=== PATIENT | male | born 1945 | race Caucasian/White ===

== ENCOUNTER 2018-06-27 17:01 | Inpatient (IN) ==
[2018-06-27] MEDS ORDERED: CALCIUM CHLORIDE 1,000 MG/10 ML SYRINGE IV ONE (17:41)
[2018-06-27] MEDS ORDERED: DEXTROSE 50% 50 ML VIAL IV ONE ×2 (17:41→23:25)
[2018-06-27] MEDS ORDERED: INSULIN REGULAR, HUMAN 1 UNIT/0.01 ML UNIT IV ONE (17:41)
[2018-06-27] MEDS ORDERED: 0.9 % SODIUM CHLORIDE 1,000 ML IV ONE ×2 (18:04→19:33)
--- NOTE | 2018-06-27 19:03 | Emergency Department Note ---
Recheck HPI - General Chief Complaint: Recheck/Abnormal Lab/Rx Stated Complaint: High potassium Time Seen by Provider: 06/27/18 17:40 Source: patient, family Mode of arrival: EMS Limitations: no limitations - History of Present Illness HPI Narrative: Patient was asked to come the emergency room by the [place] where he had blood drawn this morning and was found to have a reported potassium of 7.6. He denies dizziness, palpitations, lightheadedness, chest pain, shortness of breath. He has some chronic problems with his right knee and right lower extremity from old injuries and from a knee replacement of August 2017 which had complications. He admits to not drinking very well at all sometimes only 8 ounces a day. He is on chlorthalidone and lisinopril. He is on multiple other medications. REVIEW OF SYSTEMS: See above. Denies nausea or vomiting or diarrhea. Denies shortness of breath or cough. Denies chest pain. Denies fevers chills and sweats. Denies dysuria although he has had irritable bladder in the past. No headache. He does have frequent muscle cramps which is new or recent. - Related Data Home Medications Medication Instructions Recorded Confirmed Losartan 25 mg PO BID 11/29/14 11/29/14 metFORMIN [Glucophage] 250 mg PO BIDCC 11/29/14 11/29/14 Previous Rx's Medication Instructions Recorded Ciprofloxacin 0.3% Ophth Drops 2 gtt OU TID #1 bottle 08/25/17 [Ciloxan 0.3% Ophth Drops] Cyclobenzaprine [Flexeril] 10 mg PO TID #20 tab 12/14/17 Clindamycin HCl [Cleocin] 300 mg PO TID #30 cap 12/15/17 Allergies Allergy/AdvReac Type Severity Reaction Status Date / Time furosemide [From Lasix] Allergy Mild Hives Verified 06/27/18 17:01 Poison [place] Extract Allergy Mild Hives Verified 06/27/18 17:01 Past Medical History - Past Medical History [facility] Narrative: Medical History (Last Updated 06/27/18 @ 19:02 by Jamie Wild DO) Status post myocardial infarction (Chronic) Diabetes mellitus type 2 in obese (Chronic) Obesity (BMI 30-39.9) (Chronic) Hypertension, essential (Chronic) Chronic pain syndrome (Chronic) RJ (obstructive sleep apnea) (Chronic) Hyperlipidemia (Chronic) Iron deficiency anemia (Chronic) Chronic low back pain (Chronic) Erectile dysfunction (Chronic) Tinnitus, bilateral (Chronic) Sensorineural hearing loss (SNHL) of both ears (Chronic) Overactive bladder (Chronic) BPH (benign prostatic hyperplasia) (Chronic) Exposure to Agent [place] (Chronic) Depression, major, recurrent (Chronic) PTSD (post-traumatic stress disorder) (Chronic) History of cellulitis (Chronic) Cellulitis (Resolved) Cellulitis of right lower leg (Resolved) Past Surgical History (Last Updated 06/27/18 @ 19:02 by Jamie Wild DO) S/P coronary artery stent placement (Chronic) S/P meniscectomy (Resolved) S/P orchiectomy (Resolved) Medical history: Reports: arthritis, coronary artery disease, DM, hyperlipidemia, hypertension, myocardial infarction Surgical history ED: Reports: angioplasty/stent, knee replacement - Social History smoking status: Never smoker Alcohol use: Reports: None Drug use: Reports: none Physical Exam Limitations: no limitations General appearance: alert, in no apparent distress Head: atraumatic, normocephalic Eye: Present: normal appearance, PERRL, EOMI. Absent: scleral icterus, con junctival injection ENT: normal oropharynx, mucous membranes dry Neck: Present: trachea midline. Absent: lymphadenopathy, thyromegaly Chest: Present: symmetric chest wall rise Respiratory: Present: normal lung sounds bilaterally. Absent: respiratory distress, wheezes, stridor, accessory muscle use, prolonged expiratory phase Cardiovascular: Present: regular rate, normal rhythm. Absent: systolic murmur, diastolic murmur Abdominal: Present: soft. Absent: distention, tenderness, guarding, rebound, rigidity, organomegaly, mass Extremities: Present: pedal edema (Trace on the right.), other (Right knee is with the femur externally rotated and fairly fixed in position bent at about 45 degrees from full extension and quite stiff with bandages covering it with trace yellow discharge in the lower bandage.). Absent: calf tenderness Neurological: Present: alert, oriented X3 Psychiatric: Present: normal affect, normal mood Skin: Present: warm, dry Course Vital Signs Temperature 96.8 F L 06/27/18 17:01 Pulse Rate 67 06/27/18 17:01 Respiratory Rate 16 06/27/18 17:01 Blood Pressure 120/67 06/27/18 17:01 Pulse Oximetry (%) 100 06/27/18 17:01 Temperature 96.8 F L 06/27/18 17:01 Pulse Rate 66 06/27/18 19:01 Respiratory Rate 28 H 06/27/18 19:16 Blood Pressure 114/90 06/27/18 19:16 Pulse Oximetry (%) 100 06/27/18 19:01 Recheck/Abnormal Lab/Rx - MDM Narrative Medical decision making narrative: Acute renal failure with creatinine of 2.6 with hyperkalemia being the primary concern with [facility] and 7.2 here. Calcium chloride, IV fluids, insulin ordered. Furosemide he is allergic to. Some evidences are questioning any usefulness of Kayexalate in the emergency medicine literature. Most likely the cause of his hyperkaemia is acute renal failure which was probably caused by poor oral intake, diuretic (chlorthalidone), and the hyperkalemia contributed to by being on lisinopril 40 mg. 7:05 PM I spoke with hospitalist. With patient's history of coronary disease status post WA and stenting 9 months ago he is requesting nephrology be consulted and whether or not this is appropriate here. 7:15 PM I spoke with data migration lead, Dr. Bell, who recommended going ahead with Kayexalate, adding an amp of bicarb and keeping the fluids going with urine output and monitoring at even 1 hour. Because of muscle cramping this is most likely due to potassium but to draw a CK. - Lab Data Lab results reviewed: Yes I reviewed the patient's lab results. Lab Results 06/27/18 06/27/18 Range/Units 17:21 19:26 POC Hct 27.0 L 26.0 L (41.0-55.0) % POC Sodium 136 137 (133-145) mmol/L POC Potassium 7.2 H* 6.5 H* (3.3-5.1) mmol/L POC Chloride 109 H 114 H (96-108) mmol/L POC Total CO2 18 L 18 L (22-30) mmol/L POC BUN 47 H 48 H (8-23) mg/dl POC Creatinine 2.9 H 2.6 H (0.7-1.2) mg/dl POC Glucose 92 56 L (70-105) mg/dL POC WB Ioniz Calcium 1.28 1.40 H (1.16-1.32) mmol/L - EKG Data EKG results narrative: First-degree AV block. No ACS signs or findings. This EKG will be read by a riverine assault craft crewman. Disposition Pt seen by SANITATION DIRECTOR/PA only: No Clinical Impression: Hyperkalemia, Status post myocardial infarction, Diabetes mellitus type 2 in obese, Muscle cramps Acute renal failure Qualifiers: Acute renal failure type: unspecified Qualified Code(s): N17.9 - Acute kidney failure, unspecified Disposition: Xfer As Inpt ([facility]) Condition: Fair Referrals: Brannon Villegas ARNP [Primary Care Provider] -
[2018-06-27] MEDS ORDERED: SODIUM POLYSTYRENE SULFONATE 15 GM/60 ML SUSPENSION PO ONE (19:16)
[2018-06-27] MEDS ORDERED: SODIUM BICARBONATE 50 MEQ/50 ML VIAL IV ONE (19:39)
[2018-06-27] MEDS ORDERED: ACETAMINOPHEN 325 MG TABLET PO PRN ×2 (19:40→21:40)
--- NOTE | 2018-06-27 20:52 | Internal Med History&Physical ---
Medical - H&P: [facility] Patient information: Note initiated : 06/27/18 at 8:49 pm Service Date, if different from initiated Date: [] Patient: Keyon Dinero a 73 y/o M admitted on 06/27/18 for High potassium. Chief Complaint: [] History of present illness: Mr. Dinero is a 73 year old M Who presents to the ED after being told he had an abnormal lab at the [place]. Patient had lab work done the [place] today which showed a potassium of 7.6 and he was instructed to go to the ER. In the ER [id number] was 7.2. And his creatinine was 2.9. Patient is on chlorthalidone as well as lisinopril. He describes poor oral intake. May be one glass of water in a cup of coffee a day. He says his potassium has been high in the past. He says he has been feeling poor the last couple days described as having some nausea generalized weakness. Case was discussed with zoo veterinarian in the ED. Patient has a complicated history he had a total knee arthroplasty last year postoperatively had a STEMI inferior wall and had a stent to the RCA also had a stent to left circumflex. Has history of diabetes depression depression PTSD chronic back pain and leg pain. In the ED he was given calcium gluconate generous IV fluids insulin glucose bicarb and Kayexalate. Repeat [id number] showed improvement in his potassium. Patient denies any chest pain, no vomiting, no diarrhea no abdominal pain. His EKG showed no spiked T waves and no prolonged QRS. Review of Systems: Pertinent positives as above. Denies headache/fever/chills/vomiting/chest or abdominal pain/cough/dyspnea/diarrhea. Remaining 10 point review of systems reviewed negative Medical - H&P: [facility] Medical history: Medical History (Last Updated 06/27/18 @ 19:02 by Jamie Wild DO) Status post myocardial infarction (Chronic) Diabetes mellitus type 2 in obese (Chronic) Obesity (BMI 30-39.9) (Chronic) Hypertension, essential (Chronic) Chronic pain syndrome (Chronic) RJ (obstructive sleep apnea) (Chronic) Hyperlipidemia (Chronic) Iron deficiency anemia (Chronic) Chronic low back pain (Chronic) Erectile dysfunction (Chronic) Tinnitus, bilateral (Chronic) Sensorineural hearing loss (SNHL) of both ears (Chronic) Overactive bladder (Chronic) BPH (benign prostatic hyperplasia) (Chronic) Exposure to Agent [place] (Chronic) Depression, major, recurrent (Chronic) PTSD (post-traumatic stress disorder) (Chronic) History of cellulitis (Chronic) Cellulitis (Resolved) Cellulitis of right lower leg (Resolved) Past Surgical History (Last Updated 06/27/18 @ 19:02 by Jamie Wild DO) S/P coronary artery stent placement (Chronic) S/P meniscectomy (Resolved) S/P orchiectomy (Resolved) Social History Denies tobacco or alcohol Has been wheelchair-bound since his knee replacement last August, he is unable to transfer by himself Lives at home with his Medical - H&P: Meds Home Medications Medication Instructions Recorded Confirmed Type Losartan 25 mg PO BID 11/29/14 11/29/14 History metFORMIN [Glucophage] 250 mg PO BIDCC 11/29/14 11/29/14 History Ciprofloxacin 0.3% Ophth Drops 2 gtt OU TID #1 bottle 08/25/17 Rx [Ciloxan 0.3% Ophth Drops] Cyclobenzaprine [Flexeril] 10 mg PO TID #20 tab 12/14/17 Rx Clindamycin HCl [Cleocin] 300 mg PO TID #30 cap 12/15/17 Rx Allergies Allergy/AdvReac Type Severity Reaction Status Date / Time furosemide [From Lasix] Allergy Mild Hives Verified 06/27/18 17:01 Poison [place] Extract Allergy Mild Hives Verified 06/27/18 17:01 Medical - H&P: Exam - Constitutional Vitals: Temp Pulse Resp BP Pulse Ox 96.8 F L 70 21 134/57 100 06/27/18 20:35 06/27/18 20:35 06/27/18 20:35 06/27/18 20:42 06/27/18 20:35 Exam: General: Alert, Awake, No acute Distress, obese Eyes/N/T: EOMI, PEERL, DMM Head/Neck: neck supple, normocephalic atraumatic CV: RRR, No murmurs, normal s1/s2 Pulm: Clear b/l, no wheezing/rhonchi/rales Abd: soft, nontender, +BS x4 Ext: no clubbing/cyanosis. Right lower extremity with 1+ edema, no edema on the left Neuro: Alert, no focal deficits, moves all extremities, CN 2-12 grossly intact, sensations intact b/l upper/lower, chronic right lower extremity weakness Skin: warm/dry Medical - H&P: Reslt - Labs Labs: Cardiac Enzymes 06/27/18 Range/Units 19:26 Total Creatine Kinase 198 H (24-195) IU/L Medical - H&P: A/P - Narrative A/P Narrative: A: *Hyperkalemia: Secondary to poor oral intake and medications and SURENDRA *SURENDRA: Secondary to poor oral intake and diuretics *CAD: h/o STEMI after R TKA 08/2017 with stent to RCA & Lcirc *DM: *Obesity: *Anemia, chronic: *Depression/PTSD: *HTN: *Chronic low back/leg pain: * P: -IVF's -f/u potassium and renal fxn -monitor UOP -Continue home aspirin/plavix/statin -Continue BB -hold ACEI/chlorthalidone -hold metformin -SSI -clarify home meds - -ppx: Heparin
[2018-06-27] MEDS ORDERED: cloNIDine HCL 0.1 MG TABLET PO PRN (20:57)
[2018-06-27] MEDS ORDERED: ONDANSETRON 4 MG/2 ML VIAL IV PRN (21:40)
[2018-06-27] MEDS ORDERED: MAGNESIUM SULFATE 2 GM/50 ML BAG IV PRN (21:40)
[2018-06-27] MEDS ORDERED: POLYETHYLENE GLYCOL 3350 17 GM PACKET PO PRN (21:40)
[2018-06-27] MEDS ORDERED: LACTULOSE 20 GM/30 ML ORAL.SOL PO PRN (21:40)
[2018-06-27] MEDS ORDERED: SENNOSIDES 1 TABLET PO PRN (21:40)
[2018-06-27] MEDS ORDERED: METHOCARBAMOL 750 MG TABLET PO PRN (21:46)
[2018-06-27] MEDS ORDERED: [UNRECOGNIZED DRUG - OTHER] PO PRN (21:46)
[2018-06-27] MEDS: DOCUSATE SODIUM 100 MG CAPSULE PO SCH (21:57)
[2018-06-27] MEDS: 0.9 % SODIUM CHLORIDE 1,000 ML IV SCH (21:57)
[2018-06-27] MEDS: INSULIN LISPRO 1 UNIT/0.01 ML UNIT SQ SCH (21:58)
[2018-06-27] MEDS: 0.9 % SODIUM CHLORIDE 10 ML SYRINGE IV SCH (21:59)
[2018-06-27] MEDS ORDERED: SODIUM BICARBONATE 50 MEQ/50 ML VIAL ONE (23:25)
[2018-06-27] MEDS ORDERED: ALBUTEROL SULFATE 2.5 MG/3 ML NEBULIZER ONE (23:25)
[2018-06-27] MEDS ORDERED: INSULIN REGULAR, HUMAN 1 UNIT/0.01 ML UNIT ONE (23:32)
[2018-06-27 23:56] LABS: Blood Urea Nitrogen 52 mg/dl (8-23)
[2018-06-28] MEDS: DOCUSATE SODIUM 100 MG CAPSULE PO SCH ×4 (00:34→21:33)
[2018-06-28] MEDS ORDERED: DEXTROSE 50% 50 ML VIAL IV ONE (00:35)
[2018-06-28] MEDS ORDERED: HYDROCODONE/APAP 7.5/325MG TABLET PO ONE ×2 (00:36→05:45)
[2018-06-28] MEDS ORDERED: SODIUM BICARBONATE 50 MEQ/50 ML VIAL IV ONE (00:36)
[2018-06-28] MEDS ORDERED: ALBUTEROL SULFATE 2.5 MG/3 ML NEBULIZER NEB ONE (00:37)
[2018-06-28] MEDS ORDERED: INSULIN REGULAR, HUMAN 1 UNIT/0.01 ML UNIT IV ONE (00:37)
[2018-06-28] MEDS: HYDROCODONE/APAP 7.5/325MG TABLET PO PRN ×3 (00:39→19:41)
[2018-06-28 05:10] LABS: Basophils # (Auto) 0 K/mcL (0.0-0.3); Basophils % (Auto) 0.3 % (0.0-2.0); Eosinophils # (Auto) 0.5 K/mcL (0.0-0.7); Eosinophils % (Auto) 5.6 % (0.0-7.0); Lymphocytes # (Auto) 1.4 K/mcL (1.5-4.8); Mean Cell Volume 91.4 fL (80.0-100.0); Mean Corpuscular HGB Conc 34.8 g/dL (31.0-36.0); Monocytes # (Auto) 0.8 K/mcL (0.1-0.9); Monocytes % (Auto) 9.1 % (1.0-12.0); Platelet Count 297 K/mcL (140-440); RBC 2.61 M/mcL (4.50-5.90); Red Cell Distribution Width 18.6 % (11.5-14.5)
[2018-06-28 05:34] LABS: ALT/SGPT 19 U/l (0-40); Albumin 3.3 gm/dL (3.2-5.2); Albumin/Globulin Ratio 1.2 (1.0-2.3); Alkaline Phosphatase 70 U/L (39-117); Bilirubin,Direct < 0.2 mg/dL (0.0-0.3); Blood Urea Nitrogen 49 mg/dl (8-23); Creatine Kinase 186 IU/L (24-195); Gamma Glutamyl Transpeptidase 38 U/L (8-61); Uric Acid 6.6 mg/dL (2.5-8.0)
[2018-06-28] MEDS: 0.9 % SODIUM CHLORIDE 10 ML SYRINGE IV SCH ×3 (05:58→22:37)
[2018-06-28] MEDS ORDERED: HYDROCODONE/APAP 7.5/325MG TABLET PO PRN (07:00)
--- NOTE | 2018-06-28 07:07 | Internal Med Progress Note ---
Medical - PN: Subj Patient information: Note initiated : 06/28/18 at 7:01 am Service Date, if different from initiated Date: [] Patient: Keyon Dinero a 73 y/o M admitted on 06/27/18 for High potassium. Chief Complaint: [] Interval history: Mr. Dinero is a 73 year old M Who presents to the ED after being told he had an abnormal lab at the [place]. Patient had lab work done the [place] today which showed a potassium of 7.6 and he was instructed to go to the ER. In the ER [id number] was 7.2. And his creatinine was 2.9. Patient is on chlorthalidone as well as lisinopril. He describes poor oral intake. May be one glass of water in a cup of coffee a day. He says his potassium has been high in the past. He says he has been feeling poor the last couple days described as having some nausea generalized weakness. Case was discussed with soil expert in the ED. Patient has a complicated history he had a total knee arthroplasty last year postoperatively had a STEMI inferior wall and had a stent to the RCA also had a stent to left circumflex. Has history of diabetes depression depression PTSD chronic back pain and leg pain. In the ED he was given calcium gluconate generous IV fluids insulin glucose bicarb and Kayexalate. Repeat [id number] showed improvement in his potassium. Patient denies any chest pain, no vomiting, no diarrhea no abdominal pain. His EKG showed no spiked T waves and no prolonged QRS. 06/28 Issues overnight. Diarrhea from Kayexalate. Potassium coming down. No nausea vomiting chest pain stomach pain. Review of Systems: denies headache/fever/chills/nausea/vomiting/chest or abdominal pain/cough/dyspnea/diarrhea. Otherwise see above. - Constitutional Vitals: Vital Signs Temp Pulse Resp BP Pulse Ox 99.5 F H 67 13 110/39 98 06/28/18 03:57 06/27/18 21:01 06/28/18 06:01 06/28/18 06:01 06/27/18 21:01 Period Temp Pulse Resp BP Sys/[place]ins Pulse Ox Last 24 Hr 96.8 F-99.5 F 65-74 12- 81-144/36-109 96-100 Intake and Output 06/27/18 06/28/1806/28/19 21:59 05:59 13:59 Intake Total 1360 600 Output Total 5400 350 Balance -4040 250 Weight 95.617 kg Intake & Output: Intake & Output 06/27/18 06/28/18 06/28/18 21:59 05:59 13:59 Intake Total 1360 600 Output Total 5400 350 Balance -4040 250 Weight 95.617 kg Intake: IV 1000 Sodium Chloride 0.9% 1,000 ml @ 1000 Wide Open IV BOLUS ONE Rx#: [id number] Oral 360 600 Output: Void Amount 400 350 Stool 5000 Other: Stool Size Copious Stool Color Brown Brown Green Green Stool Consistency Liquid Liquid Watery # Bowel Movements 2 # of times incontinent of 6 Bowels Exam: General: Alert, Awake, No acute Distress, obese Eyes/N/T: EOMI, Head/Neck: neck supple, CV: RRR, No murmurs, Pulm: Clear b/l, no wheezing/rhonchi/rales Abd: soft, nontender, +BS x4 Ext: no clubbing/cyanosis. Right lower extremity with 1+ edema, no edema on the left Neuro: Alert, no focal deficits, moves all extremities, Skin: warm/dry Medical - PN: Obj Da - Labs CBC & Chem 7: 06/28/18 03:35 06/28/18 03:35 Labs: Abnormal Lab Results 06/28/18 06/28/18 06/27/18 03:35 03:35 21:36 RBC 2.61 L Hgb 8.3 L Hct 23.8 L POC Hct RDW 18.6 H Lymph # (Auto) 1.4 L POC Potassium Potassium 5.8 H 6.9 H* POC Chloride Chloride 111 H Carbon Dioxide 19 L 18 L POC Total CO2 POC BUN BUN 49 H 52 H Creatinine 2.1 H 2.2 H POC Creatinine POC Glucose POC WB Ioniz Calcium Total Creatine Kinase 06/27/18 06/27/18 06/27/18 21:26 19:26 19:26 RBC Hgb Hct POC Hct 27.0 L 26.0 L RDW Lymph # (Auto) POC Potassium 6.7 H* 6.5 H* Potassium POC Chloride 113 H 114 H Chloride Carbon Dioxide POC Total CO2 19 L 18 L POC BUN 46 H 48 H BUN Creatinine POC Creatinine 2.5 H 2.6 H POC Glucose 56 L POC WB Ioniz Calcium 1.40 H Total Creatine Kinase 198 H 06/27/18 17:21 RBC Hgb Hct POC Hct 27.0 L RDW Lymph # (Auto) POC Potassium 7.2 H* Potassium POC Chloride 109 H Chloride Carbon Dioxide POC Total CO2 18 L POC BUN 47 H BUN Creatinine POC Creatinine 2.9 H POC Glucose POC WB Ioniz Calcium Total Creatine Kinase Meds: Medications Acetaminophen (Tylenol) 650 mg PO Q6HP PRN PRN Reason: PAIN/FEVER > 101 Hydrocodone Bitart/Acetaminophen ([place] 7.5/325mg) 1 tab PO TIDP PRN PRN Reason: Pain Amlodipine Besylate (Norvasc) 5 mg PO DAILY [facility] Atorvastatin Calcium (Lipitor) 80 mg PO HS [facility] Carvedilol (Coreg) 6.25 mg PO BID [facility] Clonidine HCl (Catapres) 0.1 mg PO TIDP PRN PRN Reason: SBP>150 Clopidogrel Bisulfate (Plavix) 75 mg PO DAILY [facility] Diagnostic Test (Pha) (Accu-Chek) 1 each FS [facility] Last Admin: 06/28/18 05:37 Dose: 1 each Documented by: Docusate Sodium (Colace) 100 mg PO BID [facility] Last Admin: 06/28/18 00:34 Dose: Not Given Documented by: Heparin Sodium (Porcine) (Heparin) 5,000 unit SQ Q12 [facility] Magnesium Sulfate (Magnesium Sulfate) 2 gm in 50 mls @ 50 mls/hr IV ONCE PRN PRN Reason: Magnesium </= 1.6 Sodium Chloride (Sodium Chloride 0.9%) 1,000 mls @ 125 mls/hr IV .Q8H [facility] Stop: 06/28/18 13:39 Last Admin: 06/27/18 21:57 Dose: 125 mls/hr Documented by: Insulin Human Lispro (Humalog) 0 unit SQ ACHS [facility]; Protocol Last Admin: 06/27/18 21:58 Dose: Not Given Documented by: Lactulose (Cephulac) 10 gm PO DAILYP PRN PRN Reason: Constipation Melatonin (Melatonin 3mg Tablet) 6 mg PO HSP PRN PRN Reason: Insomnia Methocarbamol (Robaxin) 750 mg PO QIDP PRN PRN Reason: Pain Ondansetron HCl (Zofran) 4 mg IV Q4HP PRN PRN Reason: Nausea And Vomiting Oxybutynin Chloride (Ditropan Xl) 5 mg PO TID [facility] Polyethylene Glycol (Miralax) 17 gm PO DAILYP PRN PRN Reason: Constipation Senna (Senokot) 2 tab PO HSP PRN PRN Reason: Constipation Sodium Chloride (Saline Flush) 10 ml IV Q8 [facility] Last Admin: 06/28/18 05:58 Dose: Not Given Documented by: Medical - PN: A/P - Time Spent With Patient Total time spent is greater than 50% in coordination of care (as documented) at patient's floor/unit and/or counseling patient: - Narrative A/P Narrative: A: *Hyperkalemia: Secondary to poor oral intake,medications, and SURENDRA -improving *SURENDRA on ?CKD, unknown baseline: Secondary to poor oral intake and diuretics *CAD: h/o STEMI after R TKA 08/2017 with stent to RCA & Lcirc *DM: *Obesity: *Anemia, chronic: *Depression/PTSD: *HTN: *Chronic low back/leg pain: *Deconditioning/Debility/Poor functional status: wheelchair bound at home, self- transfers P: -IVF's -f/u potassium and renal fxn -monitor UOP -Continue home aspirin/plavix/statin -Continue BB -hold ACEI/chlorthalidone -hold metformin -SSI -clarify home meds - -ppx: Heparin Medical - PN: Qual - VTE Deep Vein Thrombosis/Pulmonary Embolism Present on Admission: No
[2018-06-28] MEDS ORDERED: LACTATED RINGERS 1,000 ML IV SCH (07:15)
[2018-06-28] MEDS: 0.9 % SODIUM CHLORIDE 1,000 ML IV SCH (07:18)
[2018-06-28] MEDS: INSULIN LISPRO 1 UNIT/0.01 ML UNIT SQ SCH ×4 (08:11→21:32)
[2018-06-28] MEDS ORDERED: CLOPIDOGREL 75 MG TABLET PO SCH (09:00)
[2018-06-28] MEDS ORDERED: CARVEDILOL 6.25 MG TABLET PO SCH (09:00)
[2018-06-28] MEDS ORDERED: HEPARIN 5,000 UNIT/ML VIAL SQ SCH (09:00)
[2018-06-28] MEDS ORDERED: OXYBUTYNIN CHLORIDE 5 MG TAB.XL.24H PO SCH (09:00)
[2018-06-28] MEDS ORDERED: amLODIPine 5 MG TABLET PO SCH (09:00)
--- NOTE | 2018-06-28 09:24 | Discharge Summary ---
Medical - DS: Prov Patient information: Note initiated : 06/28/18 at 9:04 am Service Date, if different from initiated Date: [] Patient: Keyon Dinero 73 y/o M admitted on 06/27/18 for High potassium. Chief Complaint: [] Date of admission: 06/27/18 20:29 Discharge date: 06/29/18 Primary care physician: Brannon Villegas Consults: 06/27/18 Consult to Physician [CONS] Stat Comment: Consulting Provider: Jhonny Velasquez Reason For Exam: Physician to Consult Medical - DS: Meds - Discharge Medications Prescriptions: sitaGLIPtin [Januvia] 50 mg PO DAILY #15 tab Active and Home Medications: Home Medications metFORMIN [Glucophage] 500 mg PO BIDCC 11/29/14 [History Confirmed 06/27/18 Last Taken 06/27/18] Acetaminophen [Tylenol] 500 - 1,000 mg PO QID PRN 06/27/18 [History Confirmed 06/27/18 Last Taken 06/26/18] Ascorbic Acid [Vitamin C] 500 mg PO DAILY 06/27/18 [History Confirmed 06/27/18 Last Taken 06/27/18] Atorvastatin Calcium 80 mg PO HS 06/27/18 [History Confirmed 06/27/18 Last Taken 06/26/18] Carvedilol [Coreg] 6.25 mg PO BID 06/27/18 [History Confirmed 06/27/18 Last Taken 06/27/18] Cephalexin [Keflex] 500 mg PO QID 06/27/18 [History Confirmed 06/27/18 Last Taken 06/26/18] Chlorthalidone [Hygroton] 25 mg PO DAILY 06/27/18 [History Confirmed 06/27/18 Last Taken 06/26/18] Clopidogrel Bisulfate [Plavix] 75 mg PO DAILY 06/27/18 [History Confirmed 06/27/18 Last Taken 06/26/18] Ferrous Gluconate [Fergon] 324 mg PO DAILY 06/27/18 [History Confirmed 06/27/18 Last Taken 06/27/18] Hydrocodone/APAP 7.5/325Mg [[place] 7.5-325Mg] 1 tab PO TID PRN 06/27/18 [History Confirmed 06/27/18 Last Taken 06/27/18 04:00] Lisinopril [Zestril] 40 mg PO DAILY 06/27/18 [History Confirmed 06/27/18 Last Taken 06/27/18] Melatonin 5 mg PO HS PRN 06/27/18 [History Confirmed 06/27/18 Last Taken Unknown] Methocarbamol [Robaxin] 750 mg PO QIDP PRN 06/27/18 [History Confirmed 06/27/18 Last Taken 06/23/18] Oxybutynin Chloride [Ditropan Xl] 5 mg PO TID 06/27/18 [History Confirmed 06/27/18 Last Taken 06/27/18] Polyethylene Glycol 3350 [Miralax] 119 gm PO PRN PRN 06/27/18 [History Confirmed 06/27/18 Last Taken Unknown] Sulfamethoxazole/Trimethoprim [Bactrim Ds] 1 tab PO BID 06/27/18 [History Confirmed 06/27/18 Last Taken 06/27/18] amLODIPine [Norvasc] 5 mg PO DAILY 06/27/18 [History Confirmed 06/27/18 Last Taken 06/27/18] Home Medications Acetaminophen [Tylenol] 500 - 1,000 mg PO QID PRN 06/27/18 [History Confirmed 06/27/18 Last Taken 06/26/18] Ascorbic Acid [Vitamin C] 500 mg PO DAILY 06/27/18 [History Confirmed 06/27/18 Last Taken 06/27/18] Atorvastatin Calcium 80 mg PO HS 06/27/18 [History Confirmed 06/27/18 Last Taken 06/26/18] Carvedilol [Coreg] 6.25 mg PO BID 06/27/18 [History Confirmed 06/27/18 Last Taken 06/27/18] Cephalexin [Keflex] 500 mg PO QID 06/27/18 [History Confirmed 06/27/18 Last Taken 06/26/18] Clopidogrel Bisulfate [Plavix] 75 mg PO DAILY 06/27/18 [History Confirmed 06/27/18 Last Taken 06/26/18] Ferrous Gluconate [Fergon] 324 mg PO DAILY 06/27/18 [History Confirmed 06/27/18 Last Taken 06/27/18] Hydrocodone/APAP 7.5/325Mg [[place] 7.5-325Mg] 1 tab PO TID PRN 06/27/18 [History Confirmed 06/27/18 Last Taken 06/27/18 04:00] Melatonin 5 mg PO HS PRN 06/27/18 [History Confirmed 06/27/18 Last Taken Unknown] Methocarbamol [Robaxin] 750 mg PO QIDP PRN 06/27/18 [History Confirmed 06/27/18 Last Taken 06/23/18] Oxybutynin Chloride [Ditropan Xl] 5 mg PO TID 06/27/18 [History Confirmed 06/27/18 Last Taken 06/27/18] Polyethylene Glycol 3350 [Miralax] 119 gm PO PRN PRN 06/27/18 [History Confirmed 06/27/18 Last Taken Unknown] Fentanyl 1 patch TRANSDERMAL Q72H 06/28/18 [History Confirmed 06/28/18 Last Taken Unknown] diphenhydrAMINE [Benadryl] 25 mg PO BIDP PRN 06/28/18 [History Confirmed 06/28/18 Last Taken Unknown] sitaGLIPtin [Januvia] 50 mg PO DAILY #15 tab 06/28/18 [Rx Last Taken Unknown] Medical - DS: Hosp Hospital course: Mr. Dinero is a 73 year old M Who presents to the ED after being told he had an abnormal lab at the [place]. Patient had lab work done the [place] today which showed a potassium of 7.6 and he was instructed to go to the ER. In the ER [id number] was 7.2. And his creatinine was 2.9. Patient is on chlorthalidone as well as lisinopril. He describes poor oral intake. May be one glass of water in a cup of coffee a day. He says his potassium has been high in the past. He says he has been feeling poor the last couple days described as having some nausea generalized weakness. Case was discussed with flume worker in the ED. Patient has a complicated history he had a total knee arthroplasty last year postoperatively had a STEMI inferior wall and had a stent to the RCA also had a stent to left circumflex. Has history of diabetes depression depression PTSD chronic back pain and leg pain. In the ED he was given calcium gluconate generous IV fluids insulin glucose bicarb and Kayexalate. Repeat [id number] showed improvement in his potassium. Patient denies any chest pain, no vomiting, no diarrhea no abdominal pain. His EKG showed no spiked T waves and no prolonged QRS. 06/28 Issues overnight. Diarrhea from Kayexalate. Potassium coming down. No nausea vomiting chest pain stomach pain. 06/29 Feeling much better slept okay. No complaints, no overnight events. Looking forward to going home soon. Stable for discharge. Discussed stopping lisinopril and Bactrim. May continue his Keflex and diuretic but encouraged to keep up on his hydration. Metformin switch to alternative oral hypoglycemic given his renal function. Discharge diagnosis: Hyperkalemia renal failure Secondary discharge diagnosis: Diabetes CAD obesity chronic anemia depression hypertension chronic pain - Time Spent with Patient Total time spent providing and/or coordinating discharge services: Greater than 30 minutes Medical - DS: Exam - Constitutional Vitals: Vital Signs Temp Pulse Pulse Resp BP BP Pulse Ox 06/28/18 06:01 13 110/39 06/28/18 05:31 18 132/64 06/28/18 05:09 12 06/28/18 05:01 14 125/53 06/28/18 04:32 125/109 06/28/18 04:01 12 111/42 06/28/18 03:57 99.5 F H 06/28/18 03:31 15 111/52 06/28/18 03:11 18 06/28/18 03:01 20 93/39 06/28/18 02:31 16 111/42 06/28/18 02:07 17 90/42 06/28/18 02:03 17 85/37 06/28/18 02:01 16 81/44 06/28/18 01:35 18 110/37 06/28/18 01:03 16 90/36 06/28/18 01:01 19 88/39 06/28/18 00:15 15 06/28/18 00:01 99.1 F H 24 H 117/104 06/27/18 23:01 16 144/58 06/27/18 22:01 18 99/83 06/27/18 21:01 67 16 115/45 98 06/27/18 20:42 134/57 06/27/18 20:35 96.8 F L 70 21 134/57 100 06/27/18 20:30 98.4 F 74 18 134/57 99 06/27/18 20:16 70 21 139/59 100 06/27/18 20:01 65 21 125/54 99 06/27/18 19:46 68 25 H 113/45 96 06/27/18 19:32 68 26 H 105/49 98 06/27/18 19:16 28 H 114/90 06/27/18 19:01 66 16 111/38 100 06/27/18 18:46 66 23 H 100/41 100 06/27/18 18:44 72 22 116/41 100 06/27/18 18:31 68 16 94/51 100 06/27/18 18:16 65 20 114/49 100 06/27/18 18:08 65 20 116/37 100 06/27/18 18:01 70 19 88/42 100 06/27/18 17:46 67 18 110/59 100 06/27/18 17:38 69 22 118/53 100 06/27/18 17:01 96.8 F L 67 16 120/67 100 Intake and Output 06/27/18 06/28/18 06/28/18 21:59 05:59 13:59 Intake Total 5357 499 4009 Output Total 5400 350 Balance -4040 250 1000 Intake: IV 1000 1000 Sodium Chloride 0.9% 1,000 ml @ 1000 1000 125 mls/hr IV .Q8H [facility] Rx#: [id number] Oral 360 600 Output: Void Amount 400 350 Stool 5000 Other: Stool Size Copious Stool Color Brown Brown Green Green Stool Consistency Liquid Liquid Watery # Bowel Movements 2 # of times incontinent of 6 Bowels Weight 95.617 kg Medical - DS: Data Labs on day of discharge: Labs from last 24 hours 06/28/18 06/28/18 06/27/18 03:35 03:35 21:36 WBC 8.9 RBC 2.61 L Hgb 8.3 L Hct 23.8 L POC Hct MCV 91.4 MCH 31.8 MCHC 34.8 RDW 18.6 H Plt Count 297 MPV 8.5 Gran % 69.0 Lymph % (Auto) 16.0 [place] % (Auto) 9.1 Eos % (Auto) 5.6 Baso % (Auto) 0.3 Gran # 6.2 Lymph # (Auto) 1.4 L [place] # (Auto) 0.8 Eos # (Auto) 0.5 Baso # (Auto) 0 POC Sodium Sodium 141 135 POC Potassium Potassium 5.8 H 6.9 H* POC Chloride Chloride 111 H 105 Carbon Dioxide 19 L 18 L POC Total CO2 Anion Gap 11.0 12.0 POC BUN BUN 49 H 52 H Creatinine 2.1 H 2.2 H POC Creatinine GFR Calculation 31 29 Glucose 81 83 POC Glucose Uric Acid 6.6 Calcium 9.3 9.9 POC WB Ioniz Calcium Phosphorus 3.9 Magnesium 1.8 Total Bilirubin 0.2 Direct Bilirubin < 0.2 GGT 38 AST 21 ALT 19 Alkaline Phosphatase 70 Lactate Dehydrogenase 206 Total Creatine Kinase 186 Total Protein 6.1 Albumin 3.3 Globulin 2.8 Albumin/Globulin Ratio 1.2 Triglycerides 123 06/27/18 06/27/18 06/27/18 21:26 19:26 19:26 WBC RBC Hgb Hct POC Hct 27.0 L 26.0 L MCV MCH MCHC RDW Plt Count MPV Gran % Lymph % (Auto) [place] % (Auto) Eos % (Auto) Baso % (Auto) Gran # Lymph # (Auto) [place] # (Auto) Eos # (Auto) Baso # (Auto) POC Sodium 138 137 Sodium POC Potassium 6.7 H* 6.5 H* Potassium POC Chloride 113 H 114 H Chloride Carbon Dioxide POC Total CO2 19 L 18 L Anion Gap POC BUN 46 H 48 H BUN Creatinine POC Creatinine 2.5 H 2.6 H GFR Calculation Glucose POC Glucose 84 56 L Uric Acid Calcium POC WB Ioniz Calcium 1.32 1.40 H Phosphorus Magnesium Total Bilirubin Direct Bilirubin GGT AST ALT Alkaline Phosphatase Lactate Dehydrogenase Total Creatine Kinase 198 H Total Protein Albumin Globulin Albumin/Globulin Ratio Triglycerides 06/27/18 17:21 WBC RBC Hgb Hct POC Hct 27.0 L MCV MCH MCHC RDW Plt Count MPV Gran % Lymph % (Auto) [place] % (Auto) Eos % (Auto) Baso % (Auto) Gran # Lymph # (Auto) [place] # (Auto) Eos # (Auto) Baso # (Auto) POC Sodium 136 Sodium POC Potassium 7.2 H* Potassium POC Chloride 109 H Chloride Carbon Dioxide POC Total CO2 18 L Anion Gap POC BUN 47 H BUN Creatinine POC Creatinine 2.9 H GFR Calculation Glucose POC Glucose 92 Uric Acid Calcium POC WB Ioniz Calcium 1.28 Phosphorus Magnesium Total Bilirubin Direct Bilirubin GGT AST ALT Alkaline Phosphatase Lactate Dehydrogenase Total Creatine Kinase Total Protein Albumin Globulin Albumin/Globulin Ratio Triglycerides Medical - DS: A/P - Patient/Caregiver Discharge Instructions Activity: as per physical therapy Diet: Consistent Carbohydrate Additional Instructions: Needs a follow-up basic metabolic panel in 3-5 days with results going to his primary care provider Prescriptions: sitaGLIPtin [Januvia] 50 mg PO DAILY #15 tab - Follow up Plan Follow up with: Brannon Villegas ARNP [Primary Care Provider] - Disposition: Home, Self-Care Prognosis: Fair Rehab Potential: Fair Overall status at discharge: patient is back to baseline Medical - DS: Qual - VTE Deep Vein Thrombosis/Pulmonary Embolism Present on Admission: No
[2018-06-28] MEDS ORDERED: ONDANSETRON 4 MG/2 ML VIAL IV PRN (10:00)
[2018-06-28] MEDS ORDERED: cloNIDine HCL 0.1 MG TABLET PO PRN (10:00)
[2018-06-28] MEDS ORDERED: MAGNESIUM SULFATE 2 GM/50 ML BAG IV PRN (10:00)
[2018-06-28] MEDS ORDERED: LACTULOSE 20 GM/30 ML ORAL.SOL PO PRN (10:00)
[2018-06-28] MEDS ORDERED: ACETAMINOPHEN 325 MG TABLET PO PRN (10:00)
[2018-06-28] MEDS ORDERED: POLYETHYLENE GLYCOL 3350 17 GM PACKET PO PRN (10:00)
[2018-06-28] MEDS ORDERED: METHOCARBAMOL 750 MG TABLET PO PRN (10:00)
[2018-06-28] MEDS: LACTATED RINGERS 1,000 ML IV SCH ×4 (11:40→23:10)
[2018-06-28] MEDS: diphenhydrAMINE 25 MG CAPSULE PO PRN ×2 (11:51→21:10)
[2018-06-28] MEDS ORDERED: fentaNYL 12 MCG PATCH TOPICAL SCH (12:00)
[2018-06-28] MEDS: OXYBUTYNIN CHLORIDE 5 MG TAB.XL.24H PO SCH ×2 (15:04→21:10)
[2018-06-28 15:27] LABS: Blood Urea Nitrogen 40 mg/dl (8-23)
[2018-06-28] MEDS ORDERED: SODIUM BICARBONATE 650 MG TABLET PO ONE (15:41)
[2018-06-28] MEDS: PIPERACILLIN SODIUM/TAZOBACTAM 2.25 GM in DEXTROSE 5% IN WATER 50 ML IV SCH ×2 (19:26→23:36)
[2018-06-28] MEDS ORDERED: SODIUM BICARBONATE 650 MG TABLET PO SCH (21:00)
[2018-06-28] MEDS ORDERED: MELATONIN 3 MG TABLET PO PRN ×2 (21:00)
[2018-06-28] MEDS ORDERED: SENNOSIDES 1 TABLET PO PRN (21:00)
[2018-06-28] MEDS ORDERED: ATORVASTATIN 20 MG TABLET PO SCH ×2 (21:00)
[2018-06-28] MEDS: CARVEDILOL 6.25 MG TABLET PO SCH (21:11)
[2018-06-28] MEDS: HEPARIN 5,000 UNIT/ML VIAL SQ SCH (21:12)
[2018-06-29] MEDS: HYDROCODONE/APAP 7.5/325MG TABLET PO PRN ×2 (01:09→08:38)
[2018-06-29] MEDS: LACTATED RINGERS 1,000 ML IV SCH ×2 (02:30→14:24)
[2018-06-29 05:34] LABS: Mean Cell Volume 89.5 fL (80.0-100.0); Mean Corpuscular HGB Conc 34.1 g/dL (31.0-36.0); Platelet Count 281 K/mcL (140-440); RBC 2.68 M/mcL (4.50-5.90); Red Cell Distribution Width 18.9 % (11.5-14.5)
[2018-06-29] MEDS: PIPERACILLIN SODIUM/TAZOBACTAM 2.25 GM in DEXTROSE 5% IN WATER 50 ML IV SCH ×2 (05:35→12:36)
[2018-06-29] MEDS: 0.9 % SODIUM CHLORIDE 10 ML SYRINGE IV SCH ×2 (05:36→14:24)
[2018-06-29 06:14] LABS: Anisocytosis 1+ (NONE SEEN); Basophils % (Manual) 1 % (0-2); Blood Urea Nitrogen 31 mg/dl (8-23); Eosinophils % (Manual) 7 % (0-7); Lymphocytes % 13 % (15-49); Monocytes % (Manual) 7 % (1-12); Platelet Estimate NORMAL (NORMAL); RBC Morphology ABNORM (NORMAL); Segmented Neutrophils % 72 % (38-78)
--- NOTE | 2018-06-29 07:38 | Internal Med Progress Note ---
Medical - PN: Subj Patient information: Note initiated : 06/29/18 at 7:33 am Service Date, if different from initiated Date: [] Patient: Keyon Dinero a 73 y/o M admitted on 06/27/18 for High potassium. Chief Complaint: [] Interval history: Mr. Dinero is a 73 year old M Who presents to the ED after being told he had an abnormal lab at the [place]. Patient had lab work done the [place] today which showed a potassium of 7.6 and he was instructed to go to the ER. In the ER [id number] was 7.2. And his creatinine was 2.9. Patient is on chlorthalidone as well as lisinopril. He describes poor oral intake. May be one glass of water in a cup of coffee a day. He says his potassium has been high in the past. He says he has been feeling poor the last couple days described as having some nausea generalized weakness. Case was discussed with baggage checker in the ED. Patient has a complicated history he had a total knee arthroplasty last year postoperatively had a STEMI inferior wall and had a stent to the RCA also had a stent to left circumflex. Has history of diabetes depression depression PTSD chronic back pain and leg pain. In the ED he was given calcium gluconate generous IV fluids insulin glucose bicarb and Kayexalate. Repeat [id number] showed improvement in his potassium. Patient denies any chest pain, no vomiting, no diarrhea no abdominal pain. His EKG showed no spiked T waves and no prolonged QRS. 06/28 Issues overnight. Diarrhea from Kayexalate. Potassium coming down. No nausea vomiting chest pain stomach pain. 06/29 Feeling much better slept okay. No complaints, no overnight events. Looking forward to going home soon. Review of Systems: denies headache/fever/chills/nausea/vomiting/chest or abdominal pain/cough/dyspnea/diarrhea. Otherwise see above. - Constitutional Vitals: Vital Signs Temp Pulse Resp BP Pulse Ox 98.4 F 69 14 126/75 100 06/29/18 03:26 06/29/18 03:26 06/29/18 03:26 06/29/18 03:26 06/29/18 03:26 Period Temp Pulse Resp BP Sys/Mullins Pulse Ox Last 24 Hr 98.4 F-99.5 F 64-73 14-18 108-126/46-75 97-100 Intake and Output 06/28/18 06/29/18 06/29/18 21:59 05:59 13:59 Intake Total 530 1050 Output Total 801 1125 175 Balance - -175 Weight 95.799 kg Intake & Output: Intake & Output 06/28/18 06/29/18 06/29/18 21:59 05:59 13:59 Intake Total 530 1050 Output Total 801 1125 175 Balance - -175 Weight 95.799 kg Intake: IV 50 1050 Lactated Ringers 1,000 ml @ 125 1000 mls/hr IV .Q8H [facility] Rx#: [id number] Zosyn 2.25 gm In Dextrose 5% in 50 50 Water 50 ml @ 100 mls/hr IV Q6H [facility] Rx#:[id number] Oral 480 Output: Void Amount 800 1125 175 # of times incontinent of urine 1 Other: Meal Dinner Percent of Meal Consumed 100% Feeding Ability Independent Urine Appearance Clear Clear Urine Color Pale Pale Stool Size Smear Stool Color Brown # Voids 3 Exam: General: Alert, Awake, No acute Distress, obese Eyes/N/T: EOMI, Head/Neck: neck supple, CV: RRR, No murmurs, Pulm: Clear b/l, no wheezing/rhonchi/rales Abd: soft, nontender, +BS x4 Ext: no clubbing/cyanosis. Right lower extremity with 1+ edema and venous stasis changes, some erythema but nontender, no edema on the left Neuro: Alert, no focal deficits, moves all extremities, Skin: warm/dry Medical - PN: Obj Da - Labs CBC & Chem 7: 06/29/18 03:21 06/29/18 03:21 Labs: Abnormal Lab Results 06/29/18 06/29/18 06/28/18 03:21 03:21 13:11 RBC 2.68 L Hgb 8.2 L Hct 24.0 L POC Hct RDW 18.9 H Lymph # (Auto) Lymphocytes % 13 L RBC Morphology Abnorm A Anisocytosis 1+ A POC Potassium Potassium 5.3 H 5.7 H POC Chloride Chloride Carbon Dioxide 19 L 18 L POC Total CO2 POC BUN BUN 31 H 40 H Creatinine 1.5 H 1.7 H POC Creatinine Glucose 120 H POC Glucose POC WB Ioniz Calcium Total Creatine Kinase 06/28/18 06/28/18 06/27/18 03:35 03:35 21:36 RBC 2.61 L Hgb 8.3 L Hct 23.8 L POC Hct RDW 18.6 H Lymph # (Auto) 1.4 L Lymphocytes % RBC Morphology Anisocytosis POC Potassium Potassium 5.8 H 6.9 H* POC Chloride Chloride 111 H Carbon Dioxide 19 L 18 L POC Total CO2 POC BUN BUN 49 H 52 H Creatinine 2.1 H 2.2 H POC Creatinine Glucose POC Glucose POC WB Ioniz Calcium Total Creatine Kinase 06/27/18 06/27/18 06/27/18 21:26 19:26 19:26 RBC Hgb Hct POC Hct 27.0 L 26.0 L RDW Lymph # (Auto) Lymphocytes % RBC Morphology Anisocytosis POC Potassium 6.7 H* 6.5 H* Potassium POC Chloride 113 H 114 H Chloride Carbon Dioxide POC Total CO2 19 L 18 L POC BUN 46 H 48 H BUN Creatinine POC Creatinine 2.5 H 2.6 H Glucose POC Glucose 56 L POC WB Ioniz Calcium 1.40 H Total Creatine Kinase 198 H 06/27/18 17:21 RBC Hgb Hct POC Hct 27.0 L RDW Lymph # (Auto) Lymphocytes % RBC Morphology Anisocytosis POC Potassium 7.2 H* Potassium POC Chloride 109 H Chloride Carbon Dioxide POC Total CO2 18 L POC BUN 47 H BUN Creatinine POC Creatinine 2.9 H Glucose POC Glucose POC WB Ioniz Calcium Total Creatine Kinase Meds: Medications Acetaminophen (Tylenol) 650 mg PO Q6HP PRN PRN Reason: PAIN/FEVER > 101 Hydrocodone Bitart/Acetaminophen ([place] 7.5/325mg) 1 tab PO TIDP PRN PRN Reason: Pain Last Admin: 06/29/18 01:09 Dose: 1 tab Documented by: Amlodipine Besylate (Norvasc) 5 mg PO DAILY [facility] Atorvastatin Calcium (Lipitor) 80 mg PO [facility] Last Admin: 06/28/18 21:12 Dose: 80 mg Documented by: Carvedilol (Coreg) 6.25 mg PO BID [facility] Last Admin: 06/28/18 21:11 Dose: 6.25 mg Documented by: Clonidine HCl (Catapres) 0.1 mg PO TIDP PRN PRN Reason: SBP>150 Clopidogrel Bisulfate (Plavix) 75 mg PO DAILY [facility] Diagnostic Test (Pha) (Accu-Chek) 1 each FS ACHS [facility] Last Admin: 06/28/18 21:32 Dose: 1 each Documented by: Diphenhydramine HCl (Benadryl) 25 mg PO BIDP PRN PRN Reason: Itching Last Admin: 06/28/18 21:10 Dose: 25 mg Documented by: Docusate Sodium (Colace) 100 mg PO BID [facility] Last Admin: 06/28/18 21:33 Dose: Not Given Documented by: Fentanyl (Duragesic) 12 mcg TOPICAL Q72H [facility] Last Admin: 06/28/18 11:51 Dose: 12 mcg Documented by: Fludrocortisone Acetate (Florinef) 0.1 mg PO DAILY ONE Stop: 06/29/18 15:41 Heparin Sodium (Porcine) (Heparin) 5,000 unit SQ Q12 [facility] Last Admin: 06/28/18 21:12 Dose: 5,000 unit Documented by: Lactated Ringer's (Lactated Ringers) 1,000 mls @ 125 mls/hr IV .Q8H [facility] Last Admin: 06/29/18 02:30 Dose: Not Given Documented by: Magnesium Sulfate (Magnesium Sulfate) 2 gm in 50 mls @ 50 mls/hr IV ONCE PRN PRN Reason: Magnesium </= 1.6 Piperacillin Sod/Tazobactam (Sod 2.25 gm/ Dextrose) 50 mls @ 100 mls/hr IV Q6H [facility]; Protocol Last Admin: 06/29/18 05:35 Dose: 100 mls/hr Documented by: Insulin Human Lispro (Humalog) 0 unit SQ [facility]; Protocol Last Admin: 06/28/18 21:32 Dose: Not Given Documented by: Lactulose (Cephulac) 10 gm PO DAILYP PRN PRN Reason: Constipation Melatonin (Melatonin 3mg Tablet) 6 mg PO HSP PRN PRN Reason: Insomnia Last Admin: 06/28/18 21:10 Dose: 6 mg Documented by: Methocarbamol (Robaxin) 750 mg PO QIDP PRN PRN Reason: Pain Ondansetron HCl (Zofran) 4 mg IV Q4HP PRN PRN Reason: Nausea And Vomiting Oxybutynin Chloride (Ditropan Xl) 5 mg PO TID [facility] Last Admin: 06/28/18 21:10 Dose: 5 mg Documented by: Pneumococcal Polyvalent Vaccine (Pneumovax 23) 0.5 ml IM .ONCE ONE Stop: 06/29/18 10:01 Polyethylene Glycol (Miralax) 17 gm PO DAILYP PRN PRN Reason: Constipation Senna (Senokot) 2 tab PO HSP PRN PRN Reason: Constipation Sodium Chloride (Saline Flush) 10 ml IV Q8 [facility] Last Admin: 06/29/18 05:36 Dose: 10 ml Documented by: Medical - PN: A/P - Time Spent With Patient Total time spent is greater than 50% in coordination of care (as documented) at patient's floor/unit and/or counseling patient: - Narrative A/P Narrative: A: *Hyperkalemia: Secondary to poor oral intake,medications, and SURENDRA -improving *SURENDRA on CKD III, unknown baseline: Secondary to poor oral intake and diuretics *CAD: h/o STEMI after R TKA 08/2017 with stent to RCA & Lcirc *DM: *Obesity: *Anemia, chronic: *Depression/PTSD: *HTN: on ACEI/BB/diuretic. *Chronic low back/leg pain: *Deconditioning/Debility/Poor functional status: wheelchair bound at home, self- transfers P: -IVF's -f/u potassium and renal fxn -monitor UOP -Continue home aspirin/plavix/statin -Continue BB -hold ACEI/diuretic -hold metformin -SSI -clarify home meds - -ppx: Heparin Medical - PN: Qual - VTE Deep Vein Thrombosis/Pulmonary Embolism Present on Admission: No
[2018-06-29] MEDS: DOCUSATE SODIUM 100 MG CAPSULE PO SCH (08:34)
[2018-06-29] MEDS: INSULIN LISPRO 1 UNIT/0.01 ML UNIT SQ SCH ×2 (08:34→12:14)
[2018-06-29] MEDS: OXYBUTYNIN CHLORIDE 5 MG TAB.XL.24H PO SCH (08:35)
[2018-06-29] MEDS: diphenhydrAMINE 25 MG CAPSULE PO PRN (08:38)
[2018-06-29] MEDS: CARVEDILOL 6.25 MG TABLET PO SCH (08:38)
[2018-06-29] MEDS: HEPARIN 5,000 UNIT/ML VIAL SQ SCH ×2 (08:39→12:37)
[2018-06-29] MEDS ORDERED: CLOPIDOGREL 75 MG TABLET PO SCH (09:00)
[2018-06-29] MEDS ORDERED: amLODIPine 5 MG TABLET PO SCH (09:00)
[2018-06-29] MEDS ORDERED: PNEUMOCOCCAL 23-VAL P-SAC VAC 0.5 ML SYRINGE IM ONE (10:00)
[2018-06-29] MEDS ORDERED: FLUDROCORTISONE 0.1 MG TABLET PO ONE (15:40)
== END 2018-06-29 13:33 | disposition home or self-care (01) | DRG 641 ==
LOC: ED 17:01 → ICU 20:25
PROVIDERS: ADMIT Internal Medicine; ATTEND Internal Medicine